=== PATIENT | female | born 1980 | race Caucasian/White ===

== ENCOUNTER 2016-10-09 08:00 | Day surgery (SDC) | payer OTHER ==
[~2016-10-09] VITALS: Ht 160 cm; Wt 59.6 kg
[~2016-10-09 08:00] MED LIST: ARIP5TAB5 PO; Sodium Chloride LOK Flush 10 mL Syringe IV PRN; fentaNYL-PF 50 mCg/mL 2 mL Inj IVPUSH PRN
[2016-10-09] MEDS ORDERED: Propofol 10,000 mCg/mL 20 mL Inj ONE (08:01)
[2016-10-09 08:29] VITALS: BP 101/55; PULSE 72; RESP 16; O2SAT 99
[2016-10-09] MEDS ORDERED: BUPR1FIL SL (08:31)
--- NOTE | 2016-10-09 09:13 | PCM.HPANE ---
Patient Data Surgeon Admitting Provider: Attending Provider:Roberth Meng MD Primary Care Physician:Marilu Reeves ARNP Other Provider: Reason for Visit Constipation Ht/WT & BMI Height (Feet): 5 Height (Inches): 3 Weight (Kilograms): 59.57 Body Mass Index 23.00 Allergies Coded Allergies: hydrocodone (Verified Allergy, Intermediate, ITCHY, 04/16/16) Uncoded Allergies: ENVIRONMENTAL SEASONAL (Allergy, Unknown, 11/16/15) Past Anesthesia History Anesthesia History: Denies:: Abnormal Airway, Anesthesia Reactions, Difficult Intubation, Fam Anesthesia Reaction, Fam Malignant Hypertherm, Malignant Hyperthermia Diabetes History Hx Diabetes?: No MRSA MRSA: No Medications Reported Medications Buprenorphine HCl/Naloxone HCl (Suboxone 2 mg-0.5 mg Sl Film)1 Each Film1 Each SL DAILY Ref 0 10/09/16 Aripiprazole (Abilify)5 Mg Tablet5 Mg PO DAILY Ref 0 10/08/16 Discontinued Reported Medications Buspirone 7.5 Mg Tablet7.5 Mg PO DAILY Ref 0 01/03/16 Oxcarbazepine 300 Mg [id number] Mg PO BID 30 Days 01/03/16 Discontinued Scripts Prednisone (PredniSONE)20 Mg Exnaeu32 Mg PO TID #15 TABLET Ref 0 Prov:EFRA PICHARDO DO 04/16/16 History History of ENT Problems?: No HEENT History: Denies:: Abnormal Airway Cataracts Difficult Intubation Dysphagia Hearing Problem Sinus Problem TMJ Denture Type: None Teeth Condition: Within Normal Limits Hx of Heart Problems?: No Cardiovascular History: Denies:: Atrial Fibrillation Cardiac Surgery Chest Pain Congestive Heart Failure Edema Heart Murmur Hypertension Irregular Heartbeat Pacemaker Hx of Respiratory Problem?: No Respiratory History: Denies:: Asthma COPD Emphysema Oxygen Administration Pneumonia Tuberculosis Use of C-PAP Machine Hx Neurologic Problems?: No Neurological History: Denies:: CVA Dementia Headaches Multiple Sclerosis Parkinson's Disease Seizures Hx of GI Problems?: Yes Gastrointestinal History: Positive for:: Liver Disease (HEP C) Denies:: Cirrhosis Diverticulitis Gall Bladder Disease Gastroesphageal Reflux Gastrointestinal Bleeding Heartburn Hepatitis Hiatal Hernia Rectal Bleeding Hx of Problems?: Yes Genitourinary History: Positive for:: Urinary Tract Infection (recent 11/22/15) Denies:: HX of Hemodialysis Kidney Stones Female Hx: Denies:: Currently (TUBAL) Problems with Breasts? 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) Denies:: Pressure Ulcers Hx Musculoskeletal Problems?: Yes Musculoskeletal History: Denies:: Back Injury Fibromyalgia Joint Replacement Systemic Lupus Hx of Psycho/Social Problems?: Yes Psycho Social History: Positive for:: Anxiety Hx Depression Hx Surgeries?: Yes (R SHOULDER, TENDONITIS) Hx Any Other Health Problems?: Yes Other History: Denies:: Cancer Thyroid Disease History Blood Transfusions: Denies:: Blood Transfusions Hx Diabetes: No Hx Alcohol Use: NoHx Substance Use: No (past hx of heroin use- clean for 5 years) Smoking Status: Former Smoker Have You Smoked inLast 12 mo: Yes Stop/Bang Treated for Sleep Apnea?: No Do You Have a CPAP Machine?: No S-Snoring: Do You Snore Loudly: No T-Tired: feel tired, fatigued: No O-Obsered: Observed not breath: No P-Blood Pressure: treated: No B- Body Mass Index > 35 kg/m2: No A- Age over 50: No N- Neck Large Circumference: No G- Gender Male: No SAMIA Total Score: 0 Risk Assessment Category Category 1A: Patient has history of documented sleep apnea, and HAS NOT received any narcotic, sedative or anesthesia administration during this stay. Category 1B: Patient has history of documented sleep apnea, and HAS received any narcotic , sedative or anesthesia administration during this stay Category 2: Patient has SUSPECTED Obstructive Sleep Apnea, and HAS received any narcotic , sedative or anesthesia administration during this stay. Category 3: Patient has SUSPECTED Obstructive Sleep Apnea and HAS NOT received narcotic, sedative or anesthesia administration during this stay. Category 4: Outpatient in Procedural Areas with known sleep apnea or who screen positive for High Risk via the STOP/BANG questionnaire. Exam Exam Vital Signs Vital Signs Date Time Temp Pulse Resp B/P Pulse Ox O2 Delivery O2 Flow Rate FiO2 10/09/16 08:29 72 16 101/55 99 Room Air General Appearance: Alert, Oriented X3, Cooperative, No Acute Distress HEENT/AIRWAY: MP 1 Lungs: Normal Air Movement Heart: Regular Rate/Rhythm Plan Impression Patient chart reviewed, patient interviewed and anesthestic plan with risks, benefits, and alternatives discussed, and informed consent obtained. ASA Physical Status: ASA2 Mod Systemic Disease Anesthetic Plan: MAC Bene/Risks/Altern/Consents: Yes HP Complete Prior to Induction: Yes Kirsty Shields DO Oct 09, 2016 09:13
[2016-10-09] MEDS: 0.9% Sodium Chloride 1,000 ML IV SCH ×2 (09:22→09:34)
[2016-10-09 09:41] VITALS: BP 106/63; PULSE 76; RESP 16; O2SAT 100
[2016-10-09 09:51] VITALS: BP 105/60; PULSE 72; RESP 16; O2SAT 100
--- NOTE | 2016-10-09 10:28 | PCM.ANEP1 ---
Post Anesthesia Phase 1 PACU Phase 1 Assessment Vital Signs Vital Signs Date Time Temp Pulse Resp B/P Pulse Ox O2 Delivery O2 Flow Rate FiO2 10/09/16 09:51 72 16 105/60 100 Room Air 10/09/16 09:41 76 16 106/63 100 Room Air 10/09/16 08:29 72 16 101/55 99 Room Air Anesthetic Administered: MAC Level of Alertness: Sleepy, easy to arouse TARANGO's with Equal Strength: Yes Pain: No Nausea or Vomiting: No Cardiovascular Function and Hy: Yes Oxygen Delivery: Room Air Lungs: Normal Air Movement Complications: No Kirsty Shields DO Oct 09, 2016 10:28
--- NOTE | 2016-10-09 10:37 | ENDO ---
[address] [address] ENDOSCOPY PROCEDURE PATIENT: BRYON LIN : 1980 MR#: [id number] ADMIT: 10/09/2016 JOB ID: [id number] DATE OF SERVICE: 10/09/2016 PROCEDURE PERFORMED: Colonoscopy. INDICATION: Constipation. ASA CLASSIFICATION: The patient's ASA classification is II. MALLAMPATI SCORE: Mallampati score is 2. MEDICATION: Please see anesthesia note for details. INSTRUMENT USED: [id number]. PREPARATION QUALITY: Fair. PROCEDURE DETAILS: After informed consent was obtained, the patient was brought into the GI suite, where she was placed on oxygen via nasal cannula and monitored with continuous pulse oximeter, telemetry, and blood pressure monitoring. A time-out was performed. Then, she was placed in the left lateral decubitus position and medications were administered for sedation. Digital rectal exam was performed which was unremarkable. The colonoscope was then inserted into the rectum and advanced under direct visualization to the cecum, which was identified by the presence of the ileocecal valve and appendiceal orifice. Once the cecum was reached, the colonoscope was withdrawn back into the rectum, as the mucosa and lumen were examined. In the rectum, retroflexion was performed. Following retroflexion, remaining air in the rectum was suctioned, and procedure was completed. FINDINGS: Normal exam from rectum to cecum. IMPRESSION: Normal colonoscopy. RECOMMENDATIONS: Consider trial of MiraLAX daily. If the patient fails MiraLAX, consider trial of Linzess. COMPLICATIONS: None. ESTIMATED BLOOD LOSS: Zero.
== END 2016-10-09 23:59 | disposition home or self-care (01) ==
LOC: END 08:00
PROVIDERS: ATTEND Internal Medicine Gastroenterology
DX: K59.00 Constipation, unspecified (principal); R10.33 Periumbilical pain; B19.20 Unspecified viral hepatitis C without hepatic coma; F41.8 Other specified anxiety disorders; Z87.891 Personal history of nicotine dependence
CPT/HCPCS: 45378; J2250; J7030